=== PATIENT | male | born 1980 | race Caucasian/White ===

== ENCOUNTER 2017-06-21 19:47 | Emergency (ER) | payer SELFPAY ==
--- NOTE | 2017-06-21 20:00 | NUR ---
PATIENT LEFT WITHOUT BEING SEEN BY DR. ALEMAN. NO FURTHER CARE PROVIDED FOR PATIENT.
== END 2017-06-21 20:00 | disposition left against medical advice (07) ==
LOC: MED 19:47
DX: M79.646 Pain in unspecified finger(s) (principal); Z53.21 Procedure and treatment not carried out due to patient leaving prior to being seen by health care provider